=== PATIENT | female | born 1955 | race Caucasian/White ===

== ENCOUNTER 2016-09-18 23:13 | Inpatient (IN) | payer OTHER ==
[2016-09-19 02:27] VITALS: BMI 25.1
[2016-09-19] MEDS ORDERED: HEPARIN SODIUM,PORCINE 5,000 UNIT/ML 1 ML VIAL IV PRN (02:50)
[2016-09-19] MEDS ORDERED: NITROGLYCERIN SL TABS 0.4 MG TAB SUBLINGUAL PRN (02:51)
[2016-09-19] MEDS ORDERED: IPRATROPIUM-ALBUTEROL 3 ML NEB INHALATION PRN (02:52)
[2016-09-19] MEDS ORDERED: HEPARIN SODIUM,PORCINE/D5W PMX 25,000 UNIT in DEXTROSE/WATER 1 500ML.BAG IV SCH (03:00)
[2016-09-19 03:17] LABS: Basophils % (A) 0 %; CH 32.8; CHCM 33.4; Eosinophils % (A) 0 %; HCT 36.9 % (34.0-46.0); HDW 2.76; HGB 12.6 gm/dL (11.4-16.0); Luc # (Auto) 0.06; Luc % (Auto) 1; Lymphocytes % (A) 19 %; MCH 33.5 pg (25.0-35.0); MCV 98.5 fL (80.0-100.0); Mean Platelet Volume 7.3; Monocytes # (A) 0.2 k/uL (0-1.0); Monocytes % (A) 4 %; Neutrophils # (A) 3.9 k/uL (1.3-7.7); Neutrophils % (A) 76 %; RBC 3.74 m/uL (3.80-5.40); RDW 13.1 % (11.5-15.5); WBC 5.1 k/uL (3.8-10.6); WBC (Perox) 5.11
[2016-09-19] MEDS: SODIUM CHLORIDE 0.9% 1,000 ML IV SCH ×2 (03:19→22:17)
[2016-09-19 03:26] LABS: INR 1.1 (<1.1)
[2016-09-19] MEDS: traZODone HCL 100 MG TAB PO PRN ×2 (03:28→22:54)
[2016-09-19 03:29] LABS: Anion Gap 11 mmol/L; Blood Urea Nitrogen 9 mg/dL (7-17); Calcium 9.6 mg/dL (8.4-10.2); Carbon Dioxide 24 mmol/L (22-30); Chloride 106 mmol/L (98-107); Glucose 139 mg/dL (74-99); Non-African American GFR(MDRD) >60 (>60 ml/min/1.73 sqM); Potassium 3.8 mmol/L (3.5-5.1); Sodium 141 mmol/L (137-145)
[2016-09-19 03:47] LABS: Partial Thromboplastin Time 123.3 sec (22.0-30.0)
[2016-09-19] MEDS: PANTOPRAZOLE 40 MG TABLET PO SCH (06:25)
[2016-09-19] MEDS: BUDESONIDE 0.5 MG/2 ML NEBU INHALATION SCH ×2 (07:34→19:38)
[2016-09-19] MEDS: IPRATROPIUM-ALBUTEROL 3 ML NEB INHALATION SCH ×4 (07:34→19:38)
[2016-09-19] MEDS: ACETAMINOPHEN TAB 500 MG TAB PO PRN ×2 (08:57→15:20)
[2016-09-19] MEDS: METOPROLOL TARTRATE 25 MG TAB PO SCH ×2 (08:57→20:30)
[2016-09-19] MEDS: ISOSORBIDE MONONITRATE ER 60 MG TAB.ER.24H PO SCH (08:57)
[2016-09-19] MEDS: clonazePAM 0.5 MG TAB PO SCH ×2 (08:57→20:30)
--- NOTE | 2016-09-19 13:45 | US ---
EXAMINATION TYPE: US venous doppler duplex LE BI DATE OF EXAM: 09/19/2016 12:07 PM COMPARISON: NONE CLINICAL HISTORY: 61-year-old female possible DVT. Possible PE, patient on heparin. Right leg swellin g, personal history of breast cancer. SIDE PERFORMED: Bilateral TECHNIQUE: The lower extremity deep venous system is examined utilizing real time linear array sonog javier with graded compression, doppler sonography and color-flow sonography. FINDINGS: VESSELS IMAGED: External Iliac Vein (EIV) Common Femoral Vein Deep Femoral Vein Greater Saphenous Vein * Femoral Vein Popliteal Vein Proximal Calf Veins (* superficial vessels) Right Leg: Negative for DVT Left Leg: Negative for DVT IMPRESSION: No evidence of DVT within the bilateral lower extremities imaged from the groin to the upper calves.
--- NOTE | 2016-09-19 16:34 | HP ---
DATE OF ADMISSION: DATE OF SERVICE: 09/19/2016 CHIEF COMPLAINT: Patient was transferred from [facility] for questionable PE on CT. HISTORY OF PRESENT ILLNESS: Ms. Sandhu is a 61-year-old female with a past medical history of hypertension, hyperlipidemia, coronary artery disease, stroke, left breast cancer, irritable bowel syndrome, COPD, who was transferred from [facility] as she had a questionable PE on the CAT scan of her chest that was done at [facility]. The patient was started on heparin drip and transferred for further care here. The patient states that she has COPD and for the past one week difficulty in breathing has gotten worse. Patient denies having any chest pain. No history of recent travel. She states that she has been having recurrent urinary tract symptoms for which she was placed on Macrobid. When she was given Macrobid the 10 days back, she had an allergic reaction and so that was discontinued and one week back she had similar complaints with her UTI and so her PCP put her on Macrobid not knowing that she is allergic to Macrobid and after which the patient developed an allergic reaction with pinkish discoloration of her hands and feet and eventually the patient was discontinued off Macrobid and she was put on prednisone. She has been taking prednisone for the past 5 days and her last pill that she was supposed to take his today. She was given IV steroids at [facility] yesterday. Patient states that she does not have any UTI symptoms currently. As per the nursing staff report, the patient has been evaluated by pulmonary, Dr. Rocco Cunningham and that he has reviewed the CT scan suggested that the patient be off of heparin and the patient did get a lower extremity venous Doppler, the results of which are pending currently. Patient is completely asymptomatic now. She does not have any active complaints going on. REVIEW OF SYSTEMS: All 13-review of systems are done except for the ones mentioned in the HPI. PAST MEDICAL HISTORY: Significant for left breast cancer, hypertension, hyperlipidemia, fibromyalgia, stroke, COPD, irritable bowel syndrome. PAST SURGICAL HISTORY: Back surgery, heart catheterization with stent placement, orthopedic surgery, left lumpectomy. Family history of cancer and DVTs. SOCIAL HISTORY: Former smoker, quit smoking ( ) years back, occasional alcohol use. The patient's allergies to NITROFURANTOIN and SULFONAMIDE ANTIBIOTICS and MACROBID. Patient's home medications: 1. Metoprolol 25 mg p.o. b.i.d. 2. Albuterol 1 puff p.r.n. for shortness of breath. 3. Tylenol 500 mg p.o. q.4 hours for pain. 4. Klonopin 0.5 mg p.o. b.i.d. 5. Zocor 40 mg p.o. q.h.s. 6. Aspirin 162 mg p.o. daily. 7. Trazodone 100 mg p.o. q.h.s. 8. Pantoprazole 40 mg p.o. daily. 9. Isosorbide mononitrate 60 mg p.o. daily. 10. Pulmicort inhalations b.i.d. 11. Nitroglycerin 0.4 mg sublingual q.5 minutes p.r.n. for chest pain. 12. [place] 7.5/325 one tablet q.6 hours p.r.n. for pain. Patient's vital signs on examination: Temperature 97.1, heart rate 88, respiratory rate 18, blood pressure 132/65, saturating at 93% on room air. GENERAL EXAMINATION: Patient is comfortably, sitting up in her bed having her lunch, appears to be in no acute distress. HEAD: Atraumatic, normocephalic. EYES: Pupils, round, and reactive to light. NECK: No JVD. No thyromegaly. LUNGS: Decreased breath sounds in all lung guerra. A few coarse breath sounds heard. No crackles. CARDIOVASCULAR: S1, S2 heard. GI: Abdomen is soft, nontender. Bowel sounds are positive. EXTREMITIES: No edema. No cyanosis. No clubbing. Peripheral pulses are felt. [employer]: Alert, awake, oriented x3. MUSCULOSKELETAL: No joint swelling or deformity. PSYCHIATRIC: Appropriate mood and affect. SKIN: Patient has some hyperpigmented patches on the bilateral lower extremities. PATIENT'S LABS: White count of 5.1, hemoglobin 12.6, platelets of 271. Sodium is 141, potassium 3.8, chloride 106, bicarb 24, BUN 9, creatinine 0.50. Blood glucose of 139. Calcium of 9.6. Patient had a CT angiogram of her chest at [facility] which is showing questionable pulmonary embolism. Patient is having a lower extremity Doppler the results of which are pending. ASSESSMENT AND PLAN: 1. Shortness of breath. Patient had CT angio of the chest, which was positive for questionable pulmonary embolism . She was started on heparin at [facility], but as per Pulmonary, Dr. Rocco Cunningham less likely to be a pulmonary embolism and currently she is getting a lower extremity Doppler. 2. History of chronic obstructive pulmonary disease. 3. History of hypertension. 4. Hyperlipidemia. 5. Fibromyalgia. 6. History of coronary artery disease. 7. History of left breast cancer, status post lumpectomy. PLAN: The plan is to continue the patient on the current medication regimen. Her heparin has been discontinued. Patient will be continued on her home medication regimen and further recommendations to follow depending on the progress of the patient.
--- NOTE | 2016-09-19 18:39 | CONS ---
DATE OF CONSULTATION: Lena Sandhu is a 61-year-old female who presented to the ED at [facility] with rash of her lower extremities. This has been associated with increasing shortness of breath and occasional cough. She was seen in the ED, was thought to have had allergic reaction possibly to Macrodantin. She subsequently was transferred here when the CAT scan showed evidence of possible PE in the right upper lobe. She did not have any pleuritic chest pain. She has no hemoptysis. She had been started on heparin and was transferred over here. PAST MEDICAL HISTORY: Positive for breast cancer with previous mastectomy with breast reconstruction. No previous history of clots, history of asthma versus COPD. SOCIAL HISTORY: The patient is a former smoker. She does not drink alcohol excessively. Family history is noncontributory. Medications prior to admission were: 1. Desyrel. 2. Klonopin. 3. Zocor. 4. Protonix. 5. Nitrostat. 6. Lopressor. 7. Imdur. 8. Arion. 9. Pulmicort. 10. Albuterol. 11. Acetaminophen. 12. Aspirin. 13. She recently he had been on a steroid taper as well. REVIEW OF SYSTEMS: Noncontributory. On physical examination, respiratory rate 16, pulse rate of 72, blood pressure 130/80, O2 sat on room air is 94%. HEENT reveals pupils are equal. No jugular venous distention. Chest reveals prolonged expiration. Wheeze only on forced expiration. Cardiovascular system reveals an S1 and S2. ABDOMEN: Soft. There is no pedal edema. Labs reveal a white count of 5.1, hemoglobin 12.6, sodium 141, potassium 3.8, chloride 106, bicarb 24, BUN 9, creatinine 0.5. CT scan of the chest, showed some chronic changes in the right upper lobe which had previously been seen and patient was actually supposed to have a follow-up chest CT. There is only a questionable clot in the right upper lobe. D-dimer in her labs from [place] ( ). IMPRESSION: 1. Allergic reaction possibly to Macrodantin with pulmonary manifestations presenting as bronchospasm as a cause of shortness of breath. 2. Doubt pulmonary embolism as clinically this is less likely despite the d-dimer being slightly high. Lower extremity duplexes were ordered and have been negative for DVT. At this point in time, would recommend discontinuing her IV heparin, keeping her on subcutaneous heparin, keeping her on IV steroids, bronchodilators, and aerosolized steroids. Continue on her other home medications. Consider her ALLERGIC TO MACRODANTIN WHICH IS NITROFURANTOIN. Depending on how she does, we shall make further changes to her care. I would like to thank you for allowing me the privilege of participating in her care.
[2016-09-19] MEDS: ATORVASTATIN 20 MG TAB PO SCH (20:30)
[2016-09-19] MEDS: HEPARIN SODIUM,PORCINE 5,000 UNIT/ML 1 ML VIAL SQ SCH (20:30)
[2016-09-20] MEDS ORDERED: CALCIUM CARBONATE 500 MG CHEWABLE PO PRN (01:09)
[2016-09-20] MEDS ORDERED: ONDANSETRON 4 MG/2 ML VIAL IVP PRN (01:09)
[2016-09-20] MEDS: HYDROcodone/APAP 7.5-325MG 1 EACH TAB PO PRN ×2 (04:00→21:04)
[2016-09-20] MEDS: PANTOPRAZOLE 40 MG TABLET PO SCH (06:04)
[2016-09-20 06:39] LABS: Basophils # (A) 0.1 k/uL (0-0.2); Basophils % (A) 1 %; CH 32.9; CHCM 32.7; Eosinophils # (A) 0.1 k/uL (0-0.7); Eosinophils % (A) 2 %; HCT 36.7 % (34.0-46.0); HDW 2.67; HGB 11.5 gm/dL (11.4-16.0); Luc % (Auto) 2; Lymphocytes # (A) 2.3 k/uL (1.0-4.8); Lymphocytes % (A) 48 %; MCH 31.8 pg (25.0-35.0); MCHC 31.5 g/dL (31.0-37.0); Macrocytosis Slight; Mean Platelet Volume 7.1; Monocytes # (A) 0.2 k/uL (0-1.0); Monocytes % (A) 4 %; Neutrophils % (A) 43 %; RBC 3.63 m/uL (3.80-5.40); RDW 13.7 % (11.5-15.5); WBC 4.7 k/uL (3.8-10.6); WBC (Perox) 4.75
[2016-09-20 07:08] LABS: Anion Gap 9 mmol/L; Blood Urea Nitrogen 12 mg/dL (7-17); Calcium 8.9 mg/dL (8.4-10.2); Carbon Dioxide 24 mmol/L (22-30); Chloride 106 mmol/L (98-107); Glucose 84 mg/dL (74-99); Non-African American GFR(MDRD) >60 (>60 ml/min/1.73 sqM); Potassium 3.7 mmol/L (3.5-5.1); Sodium 139 mmol/L (137-145)
[2016-09-20] MEDS: IPRATROPIUM-ALBUTEROL 3 ML NEB INHALATION SCH ×4 (08:13→21:10)
[2016-09-20] MEDS: BUDESONIDE 0.5 MG/2 ML NEBU INHALATION SCH ×2 (08:13→21:10)
[2016-09-20] MEDS: clonazePAM 0.5 MG TAB PO SCH ×2 (08:25→21:04)
[2016-09-20] MEDS: METOPROLOL TARTRATE 25 MG TAB PO SCH ×2 (08:25→21:04)
[2016-09-20] MEDS: ISOSORBIDE MONONITRATE ER 60 MG TAB.ER.24H PO SCH (08:25)
[2016-09-20] MEDS: HEPARIN SODIUM,PORCINE 5,000 UNIT/ML 1 ML VIAL SQ SCH ×2 (08:26→21:04)
--- NOTE | 2016-09-20 14:35 | P.PN ---
Subjective Patient was seen and evaluated by me today for the first time. She was admitted under the wrong provider yesterday. Patient was transferred from an outside hospital for further evaluation of possible PE. She was seen and evaluated by pulmonology and pulmonary embolism was thought to be very less likely based on her clinical presentation. IV heparin was discontinued. Patient is feeling fairly well today. She denies any shortness of breath at rest. She did get up to the bathroom but did not walk up and down the torres. She has known history of COPD. Objective - Vital Signs Vital signs: Vital Signs Temp 97.3 F L 09/20/16 08:00 Pulse 64 09/20/16 12:00 Resp 18 09/20/16 12:00 BP 118/66 09/20/16 12:00 Pulse Ox 94 L 09/20/16 12:00 Intake & Output 09/19/16 09/20/16 09/20/16 18:59 06:59 18:59 Intake Total 692.61 2240 710 Output Total 600 400 Balance 692.61 1640 310 Weight 71 kg Intake: IV 1200 350 Sodium Chloride 0.9% 1, 1200 350 000 ml @ 50 mls/hr IV . Q20H [facility]AVIAN Rx#:[id number] Intake, IV Titration 130.61 Amount Heparin Sodium,Porcine/ 130.61 D5w Pmx 25,000 unit In Dextrose/Water 1 500ml. bag @ 18 UNITS/KG/HR 25. 41 mls/hr IV .[id number] FAVIAN Rx#:[id number] Oral 562 1040 360 Output: Urine 600 400 Other: # Voids 2 1 - Exam General: The patient is awake and alert, in no distress Eye: there is normal conjunctiva bilaterally. Neck: The neck is supple, there is no JVD. Cardiovascular: Normal S1-S2, no S3-S4, no murmurs. Respiratory: Lungs clear to auscultation bilaterally Gastrointestinal: Abdomen is soft, nontender Musculoskeletal: There is no pedal edema. Neurological:. Speech is normal. Skin: Skin is warm and dry - Labs CBC & Chem 7: 09/20/16 06:00 09/20/16 06:00 Labs: Abnormal Lab Results - Last 24 Hours (Table) 09/20/16 Range/Units 06:00 RBC 3.63 L (3.80-5.40) m/uL MCV 101.0 H (80.0-100.0) fL Assessment and Plan Plan: 1. Dyspnea: Probably related to underlying chronic lung disease. PE ruled out by pulmonology. Patient advised to get up and walk up and down the torres today. Check O2 sat duration with ambulation. 2. History of chronic obstructive pulmonary disease 3. Essential hypertension: Blood pressure well controlled 4. Mixed hyperlipidemia Today, I reviewed her medication list and lab work results. Awaiting reevaluation by pulmonology today. Anticipate discharge home tomorrow.
[2016-09-20] MEDS: SODIUM CHLORIDE 0.9% 1,000 ML IV SCH (18:52)
[2016-09-20] MEDS: ATORVASTATIN 20 MG TAB PO SCH (21:04)
[2016-09-20] MEDS: traZODone HCL 100 MG TAB PO PRN (23:21)
[2016-09-21 06:42] LABS: Basophils % (A) 1 %; CH 32.5; CHCM 33.9; Eosinophils # (A) 0.3 k/uL (0-0.7); Eosinophils % (A) 5 %; HCT 37.4 % (34.0-46.0); HDW 2.82; Luc # (Auto) 0.08; Luc % (Auto) 2; Lymphocytes # (A) 2.1 k/uL (1.0-4.8); Lymphocytes % (A) 41 %; MCH 33.4 pg (25.0-35.0); MCHC 34.7 g/dL (31.0-37.0); MCV 96.3 fL (80.0-100.0); Mean Platelet Volume 7.8; Monocytes # (A) 0.2 k/uL (0-1.0); Monocytes % (A) 4 %; Neutrophils # (A) 2.4 k/uL (1.3-7.7); Neutrophils % (A) 48 %; RBC 3.88 m/uL (3.80-5.40); RDW 13.3 % (11.5-15.5); WBC 5.1 k/uL (3.8-10.6); WBC (Perox) 5.05
[2016-09-21] MEDS: IPRATROPIUM-ALBUTEROL 3 ML NEB INHALATION SCH ×2 (06:45→10:51)
[2016-09-21] MEDS: BUDESONIDE 0.5 MG/2 ML NEBU INHALATION SCH (06:45)
[2016-09-21] MEDS: PANTOPRAZOLE 40 MG TABLET PO SCH (06:52)
[2016-09-21 07:25] LABS: ALT 27 U/L (9-52); AST 12 U/L (14-36); Alkaline Phosphatase 67 U/L (38-126); Anion Gap 8 mmol/L; Blood Urea Nitrogen 13 mg/dL (7-17); Calcium 9.1 mg/dL (8.4-10.2); Carbon Dioxide 27 mmol/L (22-30); Chloride 106 mmol/L (98-107); Glucose 84 mg/dL (74-99); Non-African American GFR(MDRD) >60 (>60 ml/min/1.73 sqM); Potassium 4.1 mmol/L (3.5-5.1); Sodium 141 mmol/L (137-145); Total Bilirubin 0.4 mg/dL (0.2-1.3); Total Protein 5.8 g/dL (6.3-8.2)
[2016-09-21] MEDS: METOPROLOL TARTRATE 25 MG TAB PO SCH (08:01)
[2016-09-21] MEDS: ISOSORBIDE MONONITRATE ER 60 MG TAB.ER.24H PO SCH (08:02)
[2016-09-21] MEDS: clonazePAM 0.5 MG TAB PO SCH (08:02)
[2016-09-21] MEDS: HEPARIN SODIUM,PORCINE 5,000 UNIT/ML 1 ML VIAL SQ SCH (08:02)
[2016-09-21 08:19] VITALS: RESP 20
--- NOTE | 2016-09-21 10:56 | P.DS ---
Providers Date of admission: 09/19/16 01:14 Expected date of discharge: 09/21/16 Attending physician: Nelly العراقي Consults: 09/19/16 02:52 Consult Physician Routine Consulting Provider: Tony Cunningham Consult Reason/Comments: PE, known to patient Do you want consulting provider notified?: Yes, Notify in am Primary care physician: Yessica Weiss [place] [facility] Course: This is a 61-year-old female with past medical history noted below who presented to the hospital as a transfer from [place] for further evaluation of possible pulmonary emboli. Patient presented originally with dyspnea that resolved after her presentation. She was evaluated by pulmonology here and her imaging were reviewed. Pulmonary embolus was ruled out. Patient underwent a lower extremity ultrasound showing no evidence of DVT bilaterally. Her symptoms improved significantly. On the day of discharge patient was able to walk up and down the torres with no dyspnea. Oxygen saturation remained within acceptable range. She will follow-up with Dr. Weiss as directed. 1. Dyspnea: Probably related to underlying chronic lung disease. PE ruled out by pulmonology. 2. History of chronic obstructive pulmonary disease 3. Essential hypertension: Blood pressure well controlled 4. Mixed hyperlipidemia Plan - Discharge Summary Discharge Medication List Acetaminophen Tab [Tylenol] 500 mg PO Q4HR PRN 05/28/14 [History] Albuterol Inhaler [Ventolin Hfa Inhaler] 1 - 2 puff INHALATION RT-QID PRN [History] Aspirin 162 mg PO DAILY 05/28/14 [History] Metoprolol Tartrate [Lopressor] 25 mg PO BID 05/28/14 [History] Simvastatin [Zocor] 40 mg PO HS 05/28/14 [History] clonazePAM [KlonoPIN] 0.5 mg PO BID 05/28/14 [History] traZODone HCL [Desyrel] 100 mg PO HS 05/28/14 [History] Albuterol Nebulized [Ventolin Nebulized] 2.5 mg INHALATION RT-QID PRN 09/19/16 [ History] Budesonide [Pulmicort] 0.5 mg INHALATION RT-BID 09/19/16 [History] HYDROcodone/APAP 7.5-325MG [[place] 7.5-325] 1 tab PO Q6H PRN 09/19/16 [History] Isosorbide Mononitrate ER [Imdur] 60 mg PO DAILY 09/19/16 [History] Nitroglycerin Sl Tabs [Nitrostat] 0.4 mg SL Q5M PRN 09/19/16 [History] Pantoprazole Sodium [Protonix] 40 mg PO DAILY 09/19/16 [History] Follow up Appointment(s)/Referral(s): Yessica Weiss MD [Primary Care Provider] - 1 Week Discharge Disposition: HOME SELF-CARE
--- NOTE | 2016-09-21 11:08 | P.PN ---
Subjective Principal diagnosis: ALLERGIC reaction Patient seen and examined. Patient states that her breathing is at baseline. She states she feels really good today. She is hoping to go home today. She denies cough, fevers, chills, shortness of breath. Objective - Vital Signs Vital signs: Vital Signs Temp 97.2 F L 09/21/16 08:00 Pulse 75 09/21/16 08:00 Resp 20 09/21/16 08:00 BP 147/78 09/21/16 08:00 Pulse Ox 94 L 09/21/16 08:00 Intake & Output 09/20/16 09/21/16 09/21/16 18:59 06:59 18:59 Intake Total 810 600 Output Total 400 Balance 410 600 Weight 70.9 kg Intake: IV 350 350 Sodium Chloride 0.9% 1, 350 350 000 ml @ 50 mls/hr IV . Q20H [facility]IAN Rx#:[id number] Oral 460 250 Output: Urine 400 Other: Voiding Method Toilet # Voids 1 - Exam Gen.: Patient is alert and oriented 3, no acute distress Cardiovascular: Regular rate and rhythm, S1/S2 Lungs: Clear to auscultation bilaterally Abdomen: Soft nontender nondistended positive bowel sounds Extremities: No edema - Labs CBC & Chem 7: 09/21/16 06:12 09/21/16 06:12 Labs: Abnormal Lab Results - Last 24 Hours (Table) 09/21/16 Range/Units 06:12 AST 12 L (14-36) U/L Total Protein 5.8 L (6.3-8.2) g/dL Albumin 3.3 L (3.5-5.0) g/dL Assessment and Plan Plan: Allergic reaction to Macrodantin Bronchospasm Dyspnea Doubt PE Hx breast cancer Hx asthma/COPD, unknown type Hx tobacco abuse Hypertension Dyslipidemia ok to DC from pulmonary standpoint Steroid taper bronchodilators ICS Outpatient pulmonary follow up for PFT Continued smoking cessation is highly recommended Avoid macrodantin and other allergens
--- NOTE | 2016-09-21 11:25 | PN ---
DATE OF SERVICE: 09/20/2016 She has been hemodynamically stable. She has no chest pain. She is doing better overall. She has not had any hemoptysis. On physical examination, respiratory rate is 18, pulse rate 64, temperature 97.3, blood pressure 118/66, O2 sat on room air is 94%. HEENT reveals pupils that are equal. No jugular venous distention. Chest is clear. Cardiovascular system reveals an S1 and S2. Abdomen is soft. There is no pedal edema. IMPRESSION: 1. Doubt pulmonary embolus. 2. Possible allergic reaction. 3. Asthma. Continue Pulmicort and bronchodilators. Increase her activity level. Depending on how she does, we shall make further changes to her care.
[2016-09-21 11:38] VITALS: BP 104/47; PULSE 67; TEMP 97.8
== END 2016-09-21 13:22 | disposition home or self-care (01) | DRG 204 ==
LOC: 6SEL 09-19 01:14
PROVIDERS: ADMIT Internal Medicine; ATTEND Internal Medicine
DX: R06.09 Other forms of dyspnea (principal); I10 Essential (primary) hypertension; R91.8 Other nonspecific abnormal finding of lung field; J45.909 Unspecified asthma, uncomplicated; T37 Poisoning by, adverse effect of and underdosing of other systemic anti-infectives and antiparasitics; L27.0 Generalized skin eruption due to drugs and medicaments taken internally; J44.9 Chronic obstructive pulmonary disease, unspecified; M79.7 Fibromyalgia; I25.10 Atherosclerotic heart disease of native coronary artery without angina pectoris; E78.2 Mixed hyperlipidemia; K58.9 Irritable bowel syndrome, unspecified; Z87.891 Personal history of nicotine dependence; Z79.899 Other long term (current) drug therapy; Z79.82 Long term (current) use of aspirin; Z86.73 Personal history of transient ischemic attack (TIA), and cerebral infarction without residual deficits; Z88.1 Allergy status to other antibiotic agents; Z85.3 Personal history of malignant neoplasm of breast; Z80.9 Family history of malignant neoplasm, unspecified; Z79.891 Long term (current) use of opiate analgesic; Z79.51 Long term (current) use of inhaled steroids; Z71.6 Tobacco abuse counseling; Z88.2 Allergy status to sulfonamides; Z90.12 Acquired absence of left breast and nipple; Z82.49 Family history of ischemic heart disease and other diseases of the circulatory system; Z87.448 Personal history of other diseases of urinary system
CPT/HCPCS: 80048; 80053; 85025; 85610; 85730; 93970; 94640

== ENCOUNTER → 2017-11-10 | Outpatient (CLI) | payer OTHER ==
--- NOTE | 2017-11-10 15:46 | CT ---
EXAMINATION TYPE: CT chest wo con DATE OF EXAM: 11/10/2017 COMPARISON: Report from 10/22/1999 HISTORY: Follow up for pulmonary nodule. CT DLP: 266.[address] of the chest was performed with lung and mediastinal window settings submitted. The la ck of contrast limits evaluation of the vascular, mediastinal and parenchymal structures including th e upper abdomen. LUNGS: Postinflammatory changes are seen within the upper lobes bilaterally. Areas of scattered pleur al thickening. There is evidence of bowel bronchiectasis within the upper lobes mild in degree. No di stinct nodule or mass appreciated at this time. No evidence for pleural effusion or focal consolidati on. MEDIASTINUM/EDITH: Thoracic aorta is of normal caliber with limited evaluation given lack of contrast . The heart is not enlarged. No evidence for mediastinal mass. No lymph nodes greater than 1cm. UPPER ABDOMEN: No significant abnormality is seen. OTHER: No significant other abnormality. IMPRESSION: 1. Upper lobe postinflammatory changes with mild bronchiectasis. No distinct nodule or mass.
== END | disposition home or self-care (01) ==
LOC: RADCTMAIN 14:58
PROVIDERS: ATTEND Internal Medicine Pulmonary Disease
DX: J47.9 Bronchiectasis, uncomplicated (principal); R93.8 Abnormal findings on diagnostic imaging of other specified body structures
CPT/HCPCS: 71250

== ENCOUNTER → 2019-12-28 | Outpatient (CLI) | payer SELFPAY ==
[2019-12-28 20:05] LABS: African American GFR (CKD) 113.2 (60.0-200.0); Albumin 4.1 g/dL (3.80-4.90); Albumin/Globulin Ratio 1.95 (1.60-3.17); Anion Gap 5.5 mmol/L (4.00-12.00); BUN/Creat Ratio 13.33 Ratio (12.00-20.00); Calcium 8.9 mg/dL (8.7-10.3); Carbon Dioxide 29.5 mmol/L (21.6-31.8); Chol/HDL Ratio 3.75; Globulin 2.1 g/dL (1.6-3.3); Non-African American GFR(CKD) 97.7 (60.0-200.0); Potassium 4.4 mmol/L (3.5-5.5); Total Bilirubin 0.4 mg/dL (0.2-1.2); Total Protein 6.2 g/dL (6.2-8.2)
[2019-12-28 22:45] LABS: Hemoglobin A1C 5.8 % (4.0-6.0)
== END | disposition home or self-care (01) ==
LOC: LABWHC1 11:58
PROVIDERS: ATTEND Family Medicine
DX: I10 Essential (primary) hypertension (principal); F33.9 Major depressive disorder, recurrent, unspecified; R53.83 Other fatigue
CPT/HCPCS: 36415; 80053; 80061; 83036; 84443